=== PATIENT | female | born 1940 | race Caucasian/White ===

== ENCOUNTER 2025-07-28 05:09 | Inpatient (IN) | payer MEDICARE, OTHER ==
[2025-07-28 05:54] LABS: Bacteria/HPF 2+ HPF (None Seen); CAUTI Indications for Culture Dysuria,urgency,freq; Glucose, Urine (Dipstick) Normal (Negative); Leukocyte 75 Leu/uL (Negative); Protein, Urine (Dipstick) Negative (Neg-Trace); RBC/HPF 0-3 HPF (0-3); Specific Gravity, Urine 1.011 (1.002-1.036)
[2025-07-28 05:54] LABS: #Basophils 0.07 10x3/uL (0.0-0.2); #Eosinophils 0.06 10x3/uL (0.0-0.7); #Monocytes 1.14 10x3/uL (0.11-0.59); #Neutrophils 13.33 10x3/uL (1.40-6.50); %Basophils 0.4 % (0.0-1.0); %Eosinophils 0.4 % (0.0-10.0); %Lymphocytes 7.9 % (21.0-51.0); %Monocytes 7.2 % (0.0-10.0); %Neutrophils 83.7 % (42.0-75.0); Hematocrit 48.2 % (36.0-47.0); Hemoglobin 15.7 g/dL (12.0-16.0); Mean Corpuscular Hemoglobin 27.8 pg (27.0-31.0); Mean Corpuscular Volume 85.3 fL (78.0-98.0); Platelet Count 231 10x3/uL (130-400); Red Blood Cell (RBC) Count 5.65 mill/uL (4.20-5.40); White Blood Cell (WBC) Count 15.93 10x3/uL (4.8-10.8)
[2025-07-28 05:56] LABS: Urine Culture Reflex No No
[2025-07-28 06:04] LABS: ALT (SGPT) 9 U/L (Less than 34); AST (SGOT) 23 U/L (11-34); Albumin 3.9 g/dL (3.1-4.5); Alkaline Phosphatase 75 U/L (40-110); Anion Gap 16 mmol/L (10-20); BUN (Urea Nitrogen) 13 mg/dL (9.8-20.1); Bilirubin, Total 0.7 mg/dL (0.3-1.2); Calc. Creatinine Clearance 0 mL/min (70-130); Calcium 9.3 mg/dL (7.8-10.44); Carbon Dioxide 23 mmol/L (23-31); Chloride 102 mmol/L (98-107); Globulin 3.4 g/dL (2.4-3.5); Glucose 125 mg/dL (83-110); Lipase 26 U/L (8-78); Potassium 4.0 mmol/L (3.5-5.1); Sodium 137 mmol/L (136-145)
[2025-07-28] MEDS ORDERED: cefTRIAXone (ROCEPHIN) 1 GM VIAL ONE (06:11)
[2025-07-28] MEDS ORDERED: metroNIDAZOLE 500 MG (100 mL) BAG ONE (07:36)
[2025-07-28] MEDS ORDERED: Iopamidol 370 76% 100 ML VIAL ONE (09:22)
[2025-07-28] MEDS ORDERED: Acetaminophen 325 MG TAB PO PRN (09:30)
[2025-07-28 11:01] VITALS: BMI 26.4
[2025-07-28] MEDS: QUEtiapine 25 MG TAB PO SCH (20:22)
[2025-07-29 04:19] LABS: #Basophils 0.04 10x3/uL (0.0-0.2); #Eosinophils 0.21 10x3/uL (0.0-0.7); #Monocytes 0.68 10x3/uL (0.11-0.59); #Neutrophils 6.31 10x3/uL (1.40-6.50); %Basophils 0.4 % (0.0-1.0); %Eosinophils 2.2 % (0.0-10.0); %Lymphocytes 22.5 % (21.0-51.0); %Monocytes 7.2 % (0.0-10.0); %Neutrophils 67.2 % (42.0-75.0); Hematocrit 41.3 % (36.0-47.0); Hemoglobin 13.6 g/dL (12.0-16.0); Mean Corpuscular Hemoglobin 28.8 pg (27.0-31.0); Mean Corpuscular Volume 87.5 fL (78.0-98.0); Platelet Count 170 10x3/uL (130-400); Red Blood Cell (RBC) Count 4.72 mill/uL (4.20-5.40); White Blood Cell (WBC) Count 9.41 10x3/uL (4.8-10.8)
[2025-07-29 04:35] LABS: Anion Gap 13 mmol/L (10-20); BUN (Urea Nitrogen) 16 mg/dL (9.8-20.1); Calc. Creatinine Clearance 57 mL/min (70-130); Calcium 8.6 mg/dL (7.8-10.44); Carbon Dioxide 26 mmol/L (23-31); Chloride 106 mmol/L (98-107); Glucose 94 mg/dL (83-110); Potassium 3.6 mmol/L (3.5-5.1); Sodium 141 mmol/L (136-145)
[2025-07-29] MEDS: Enoxaparin 40 MG (0.4 mL) SYRINGE SC SCH (08:56)
[2025-07-29] MEDS: Sertraline 100 MG TAB PO SCH (08:56)
[2025-07-29] MEDS: cefTRIAXone\\ROCEPHIN 1 GM in Sodium Chloride 0.9% 100 ML IVPB SCH (08:56)
[2025-07-29] MEDS: Fleet Saline Enema 133 ML BOT PR SCH (13:25)
[2025-07-29] MEDS: Bisacodyl 10 MG SUPP PR SCH ×2 (19:01→21:34)
[2025-07-29] MEDS: Pantoprazole 40 MG DR.TAB PO SCH (21:34)
[2025-07-30] MEDS: Melatonin 3 MG TAB PO PRN (01:15)
[2025-07-30 04:41] LABS: #Basophils 0.05 10x3/uL (0.0-0.2); #Eosinophils 0.21 10x3/uL (0.0-0.7); #Monocytes 0.81 10x3/uL (0.11-0.59); #Neutrophils 6.00 10x3/uL (1.40-6.50); %Basophils 0.6 % (0.0-1.0); %Eosinophils 2.3 % (0.0-10.0); %Lymphocytes 21.1 % (21.0-51.0); %Monocytes 9.0 % (0.0-10.0); %Neutrophils 66.7 % (42.0-75.0); Hematocrit 37.0 % (36.0-47.0); Hemoglobin 11.8 g/dL (12.0-16.0); Mean Corpuscular Hemoglobin 27.9 pg (27.0-31.0); Mean Corpuscular Volume 87.5 fL (78.0-98.0); Platelet Count 183 10x3/uL (130-400); Red Blood Cell (RBC) Count 4.23 mill/uL (4.20-5.40); White Blood Cell (WBC) Count 9.00 10x3/uL (4.8-10.8)
[2025-07-30 05:14] LABS: Anion Gap 9 mmol/L (10-20); BUN (Urea Nitrogen) 11 mg/dL (9.8-20.1); Calc. Creatinine Clearance 67 mL/min (70-130); Calcium 8.2 mg/dL (7.8-10.44); Carbon Dioxide 27 mmol/L (23-31); Chloride 108 mmol/L (98-107); Glucose 90 mg/dL (83-110); Magnesium 1.9 mg/dL (1.6-2.6); Potassium 3.8 mmol/L (3.5-5.1); Sodium 140 mmol/L (136-145)
[2025-07-30] MEDS: cefTRIAXone\\ROCEPHIN 2 GM in Sodium Chloride 0.9% 100 ML IVPB SCH (08:52)
[2025-07-30] MEDS: Magnesium 2 GM/50 ML(in water) 2 GM in Premix 1 BAG IVPB SCH (11:58)
[2025-07-30] MEDS: metroNIDAZOLE 500 MG TAB PO SCH (16:21)
[2025-07-30 16:44] VITALS: BP 170/74; TEMP 98.3
[2025-07-31] MEDS ORDERED: PNEUMOC 20-VAL CONJ-DIP CRM/PF 0.5 ML SYRINGE IM ONE (09:00)
== END 2025-07-30 17:25 | disposition home or self-care (01) | DRG 871 ==
LOC: ERS 05:09 → 2NO 07:48 → OBSVTOIN 07-29 11:14
PROVIDERS: ADMIT Internal Medicine; ATTEND Internal Medicine
PROC: 4A10X4Z Monitoring of Central Nervous Electrical Activity, External Approach (ICD-10-PCS; principal; 2025-07-29)
PROC: 3E03329 Introduction of Other Anti-infective into Peripheral Vein, Percutaneous Approach (ICD-10-PCS; 2025-07-29)
DX: A41.9 Sepsis, unspecified organism (principal); G93.41 Metabolic encephalopathy; J96.01 Acute respiratory failure with hypoxia; N39.0 Urinary tract infection, site not specified; K57.32 Diverticulitis of large intestine without perforation or abscess without bleeding; G30.9 Alzheimer's disease, unspecified; F02.80 Dementia in other diseases classified elsewhere, unspecified severity, without behavioral disturbance, psychotic disturbance, mood disturbance, and anxiety; Z79.899 Other long term (current) drug therapy; K57.30 Diverticulosis of large intestine without perforation or abscess without bleeding; K59.00 Constipation, unspecified
CPT/HCPCS: 36415; 51701; 70551; 71045; 71275; 74177; 80048; 80053; 81001; 82607; 83605; 83690; 83735; 83880; 84484; 85025; 86141; 87428; 93005; 93306; 95700; 95711; 95957; 96365; 96367; 96372; 96376; G0378; J0696; J1650; J3475; J7030; Q9967

== ENCOUNTER 2025-08-01 10:54 | Inpatient (IN) | payer MEDICARE, OTHER ==
[2025-08-01 11:47] LABS: #Basophils 0.04 10x3/uL (0.0-0.2); #Eosinophils 0.24 10x3/uL (0.0-0.7); #Monocytes 0.90 10x3/uL (0.11-0.59); #Neutrophils 6.56 10x3/uL (1.40-6.50); %Basophils 0.4 % (0.0-1.0); %Eosinophils 2.7 % (0.0-10.0); %Lymphocytes 14.0 % (21.0-51.0); %Monocytes 10.0 % (0.0-10.0); %Neutrophils 72.6 % (42.0-75.0); Hematocrit 46.3 % (36.0-47.0); Hemoglobin 15.1 g/dL (12.0-16.0); Mean Corpuscular Hemoglobin 27.8 pg (27.0-31.0); Mean Corpuscular Volume 85.1 fL (78.0-98.0); Platelet Count 245 10x3/uL (130-400); Red Blood Cell (RBC) Count 5.44 mill/uL (4.20-5.40); White Blood Cell (WBC) Count 9.04 10x3/uL (4.8-10.8)
[2025-08-01 12:38] LABS: ALT (SGPT) 13 U/L (Less than 34); AST (SGOT) 34 U/L (11-34); Albumin 3.6 g/dL (3.1-4.5); Alkaline Phosphatase 65 U/L (40-110); Anion Gap 14 mmol/L (10-20); BUN (Urea Nitrogen) 12 mg/dL (9.8-20.1); Bilirubin, Total 0.4 mg/dL (0.3-1.2); Calc. Creatinine Clearance 0 mL/min (70-130); Calcium 9.0 mg/dL (7.8-10.44); Carbon Dioxide 26 mmol/L (23-31); Chloride 102 mmol/L (98-107); Globulin 3.6 g/dL (2.4-3.5); Glucose 106 mg/dL (83-110); Lipase 35 U/L (8-78); Potassium 3.7 mmol/L (3.5-5.1); Sodium 138 mmol/L (136-145)
[2025-08-01] MEDS ORDERED: LevoFLOXacin 750 mg/D5W 150 ml Premix Bag ONE (13:37)
[2025-08-01] MEDS ORDERED: Ondansetron PF 4 MG/2 ML Vial ONE (13:37)
[2025-08-01] MEDS ORDERED: metroNIDAZOLE 500 MG (100 mL) BAG ONE (13:37)
[2025-08-01] MEDS ORDERED: Melatonin 3 MG TAB PO PRN (16:19)
[2025-08-01 18:11] VITALS: BMI 26.7
[2025-08-01] MEDS: QUEtiapine 25 MG TAB PO SCH (21:40)
[2025-08-01] MEDS: metroNIDAZOLE 500 MG TAB PO SCH (21:40)
[2025-08-02] MEDS: Enoxaparin 40 MG (0.4 mL) SYRINGE SC SCH (09:50)
[2025-08-02] MEDS: Sertraline 100 MG TAB PO SCH (09:50)
[2025-08-03] MEDS: Acetaminophen 325 MG TAB PO PRN (19:52)
[2025-08-06] MEDS: Senokot S 8.6-50 MG TAB PO PRN (11:26)
[2025-08-06 11:57] VITALS: TEMP 98.2
[2025-08-06 15:36] VITALS: BP 129/64
== END 2025-08-06 15:35 | DRG 945 ==
LOC: ERS 10:54 → T4-A 16:06 → OBSVTOIN 08-03 10:02
PROVIDERS: ADMIT Family Medicine; ATTEND Hospitalist
PROC: F07Z5ZZ Bed Mobility Treatment (ICD-10-PCS; principal; 2025-08-03)
PROC: F08Z0ZZ Bathing/Showering Techniques Treatment (ICD-10-PCS; 2025-08-03)
DX: R53.81 Other malaise (principal); K57.92 Diverticulitis of intestine, part unspecified, without perforation or abscess without bleeding; G30.9 Alzheimer's disease, unspecified; F02.80 Dementia in other diseases classified elsewhere, unspecified severity, without behavioral disturbance, psychotic disturbance, mood disturbance, and anxiety; Z88.5 Allergy status to narcotic agent; R63.0 Anorexia; Z88.0 Allergy status to penicillin; Z88.2 Allergy status to sulfonamides; Z88.8 Allergy status to other drugs, medicaments and biological substances; Z98.890 Other specified postprocedural states; Z85.3 Personal history of malignant neoplasm of breast; E04.1 Nontoxic single thyroid nodule; S30.11XA Contusion of abdominal wall, initial encounter; R33.9 Retention of urine, unspecified; K59.00 Constipation, unspecified; Z79.899 Other long term (current) drug therapy
CPT/HCPCS: 36415; 80053; 83605; 83690; 84484; 85025; 87040; 87077; 87149; 93005; 96365; 96366; 96367; 96375; J1650; J1956; J2405; Q0162